=== PATIENT | female | born 2000 | race Caucasian/White ===

== ENCOUNTER → 2018-08-07 | Outpatient (CLI) | payer OTHER ==
[2018-08-07 15:49] LABS: BASOPHILS % (AUTO) 1 % (0-10); EOSINOPHILS # (AUTO) 0.1 10^3/uL (0.0-0.3); EOSINOPHILS % (AUTO) 1 % (0-10); HEMATOCRIT 42 % (35-52); HEMOGLOBIN 14.2 G/DL (11.5-16.0); LYMPHOCYTES # (AUTO) 2.3 X 10^3 (1.0-4.0); LYMPHOCYTES % (AUTO) 31 % (12-44); MEAN CORPUSCULAR HEMOGLOBIN 30 PG (25-34); MEAN CORPUSCULAR HGB CONC 34 G/DL (32-36); MEAN CORPUSCULAR VOLUME 87 FL (80-99); MEAN PLATELET VOLUME 9.7 FL (7.4-10.4); MONOCYTES # (AUTO) 0.4 X 10^3 (0.0-1.0); MONOCYTES % (AUTO) 5 % (0-12); NEUTROPHILS # (AUTO) 4.9 X 10^3 (1.8-7.8); NEUTROPHILS % (AUTO) 63 % (42-75); PLATELET COUNT 306 10^3/uL (130-400); RED CELL DISTRIBUTION WIDTH 12.2 % (10.0-14.5); WHITE BLOOD COUNT 7.7 10^3/uL (4.3-11.0)
[2018-08-07 16:05] LABS: ALANINE AMINOTRANSFERASE 17 U/L (0-55); ALBUMIN 4.8 GM/DL (3.2-4.5); ALKALINE PHOSPHATASE 45 U/L (40-136); BUN/CREATININE RATIO 9; CALCIUM 10.7 MG/DL (8.5-10.1); CARBON DIOXIDE 22 MMOL/L (21-32); CHLORIDE 104 MMOL/L (98-107); CREATININE SERUM 0.76 MG/DL (0.60-1.30); GFR ESTIMATED > 60; GLUCOSE 92 MG/DL (70-105); POTASSIUM 3.6 MMOL/L (3.6-5.0); SODIUM 139 MMOL/L (135-145); TOTAL PROTEIN 8.4 GM/DL (6.4-8.2)
== END ==
LOC: CARD 15:18
PROVIDERS: ATTEND Nurse Practitioner Family
DX: R00.0 Tachycardia, unspecified (principal)
CPT/HCPCS: 36415; 80053; 84443; 85025; 85379

== ENCOUNTER → 2019-10-13 | Outpatient (CLI) | payer MEDICAID ==
--- NOTE | 2019-10-13 12:37 | Diagnostic Imaging Report ---
INDICATION: survey. TECHNIQUE: Multiple real-time grayscale images were obtained over the gravid uterus. COMPARISON: None. FINDINGS: There is a single live fetus in a cephalic presentation. heart rate was recorded at 152 BPM. Placenta is posterior. No previa is detected. Amniotic fluid volume appears normal. survey demonstrates kidneys, bladder, and stomach to be unremarkable. brain is unremarkable. There is a four-chamber heart. There is a three-vessel cord with normal insertion. spine is unremarkable. profile as well as nose and lips are suboptimal in evaluation due to position. Biometrical measurements are as follows: Biparietal 4.39 cm, age 19 weeks 2 days. Head circumference 16.78 cm, age 19 weeks 4 days. Abdominal circumference 14.06 cm, age 19 weeks 7 days. Femur length 3.16 cm, age 19 weeks 6 days. Sonographic estimate age: 19 weeks 4 days. Sonographic estimated date of delivery: 03/04/2020. Estimated Weight: 301 gm (+/- 44 gm). LMP percentile: 31%. heart rate: 152 beats per minute. number: 1 of 1. IMPRESSION: Single live IUP of 19 weeks 4 days gestational age. The estimated date of confinement sonographically is 03/04/2020. Dictated by: Dictated on workstation # [id number]
== END ==
LOC: RAD 06:40
PROVIDERS: ATTEND Nurse Practitioner Women's Health
DX: Z34.92 Encounter for supervision of normal pregnancy, unspecified, second trimester (principal); Z3A.19 19 weeks gestation of pregnancy
CPT/HCPCS: 76805

== ENCOUNTER 2020-01-17 16:26 | Outpatient (CLI) | payer MEDICAID ==
[~2020-01-17] VITALS: Ht 162.6 cm; Wt 79.4 kg
--- NOTE | 2020-01-17 16:20 | NUR ---
DARRYN WARNER presented to unit via ambulation from ED,, with c/o elevated BP, edema. DARRYN WARNER weighed, gowned, voided, and to bed. EFHM and TOCO applied, VS taken. DARRYN WARNER oriented to bed controls, call light, TV, heat, and A/C controls.
[2020-01-17 16:40] VITALS: BP 130/93
[2020-01-17 16:45] VITALS: BP 132/82
[2020-01-17 16:50] VITALS: BP 131/87
[2020-01-17 17:00] VITALS: BP 131/92
--- NOTE | 2020-01-17 17:01 | NUR ---
Dr. Farfan called and notified of pt arrival to unit. Pt is G1 due 03/02 (33.4weeks) c/o feeling "off" and having a BP of 142/102 at home, with increased swelling. notified of complaints, VS since admission, FHR status, ctx pattern, SVE, urine dipstick, and other assessment findings. Orders for CBC, CMP, uric acid, urine protein/creatine rec'd.
[2020-01-17 17:30] VITALS: BP 134/96
[2020-01-17 17:43] LABS: BASOPHILS % (AUTO) 0 % (0-10); EOSINOPHILS # (AUTO) 0.1 10^3/uL (0.0-0.3); EOSINOPHILS % (AUTO) 1 % (0-10); HEMATOCRIT 33 % (35-52); HEMOGLOBIN 10.7 g/dL (11.5-16.0); LYMPHOCYTES # (AUTO) 1.9 10^3/uL (1.0-4.0); LYMPHOCYTES % (AUTO) 16 % (12-44); MEAN CORPUSCULAR HEMOGLOBIN 28 pg (25-34); MEAN CORPUSCULAR HGB CONC 32 g/dL (32-36); MEAN CORPUSCULAR VOLUME 87 fL (80-99); MONOCYTES # (AUTO) 0.6 10^3/uL (0.0-1.0); MONOCYTES % (AUTO) 5 % (0-12); NEUTROPHILS % (AUTO) 78 % (42-75); PLATELET COUNT 211 10^3/uL (130-400); WHITE BLOOD COUNT 11.6 10^3/uL (4.3-11.0)
[2020-01-17 17:56] LABS: ALBUMIN 3.5 GM/DL (3.2-4.5); CHLORIDE 105 MMOL/L (98-107); POTASSIUM 3.8 MMOL/L (3.6-5.0); SODIUM 139 MMOL/L (135-145)
[2020-01-17 17:57] LABS: CALCIUM 9.2 MG/DL (8.5-10.1)
[2020-01-17 17:58] LABS: GLUCOSE 82 MG/DL (70-105); TOTAL PROTEIN 6.6 GM/DL (6.4-8.2)
[2020-01-17 17:59] LABS: CARBON DIOXIDE 21 MMOL/L (21-32)
[2020-01-17 18:00] LABS: BILIRUBIN,TOTAL 0.5 MG/DL (0.1-1.0)
[2020-01-17 18:02] LABS: ALKALINE PHOSPHATASE 96 U/L (40-136); CREATININE SERUM 0.64 MG/DL (0.60-1.30); GFR ESTIMATED > 60
[2020-01-17 18:03] LABS: BUN/CREATININE RATIO 11
[2020-01-17 18:05] LABS: ALANINE AMINOTRANSFERASE 11 U/L (0-55); URIC ACID 5.7 MG/DL (2.6-7.2)
--- NOTE | 2020-01-17 18:11 | NUR ---
Lab results reported to Dr. Farfan. Orders for discharge received.
--- NOTE | 2020-01-17 18:24 | NUR ---
Discharge instructions explained to pt with copy provided to pt. Pt verbalizes understanding of instructions, signs to verify. No questions or concerns voiced at this time. Pt ambulates off unit to private vehicle accompanied by S.O. No s/s of distress noted.
--- NOTE | 2020-01-18 08:29 | Physician Query-Final Dx ---
TONEY MAR 01/18/20 0829: Clinic Account Progress/Dx Physician Query: Please give diagnosis Please include # weeks gestation Date of Service Jan 17, 2020 at 16:26 VAL HARRINGTON DO 01/18/20 1351: Clinic Account Progress/Dx DIAGNOSIS: Diagnosis 33 week IUP Head ache Swelling lower extremities TONEY MAR Jan 18, 2020 08:29 VAL HARRINGTON DO Jan 18, 2020 13:51
== END 2020-01-17 18:24 ==
LOC: WSo 16:26 → LDRP 16:26 → WSo 18:24
PROVIDERS: ATTEND Obstetrics & Gynecology
DX: O26.893 Other specified pregnancy related conditions, third trimester (principal); Z3A.33 33 weeks gestation of pregnancy
CPT/HCPCS: 80053; 82570; 84156; 84550; 85025; G0463; 36415; 99214

== ENCOUNTER → 2020-02-08 | Outpatient (CLI) | payer MEDICAID | LOC: LABNPT 16:59 | PROVIDERS: ATTEND Obstetrics & Gynecology | DX: O13.3 Gestational [pregnancy-induced] hypertension without significant proteinuria, third trimester (principal) | CPT/HCPCS: 82570; 84156 ==

== ENCOUNTER 2020-02-09 18:55 | Inpatient (IN) | payer MEDICAID ==
[~2020-02-09] VITALS: Ht 160 cm; Wt 83.9 kg
--- NOTE | 2020-02-09 19:01 | NUR ---
DARRYN WARNER presented to unit via ambulatory from ED, accompanied by , with c/o INDUCTION 36 09/18. DARRYN WARNER weighed, gowned, voided, and to bed. EFHM and TOCO applied, VS taken. DARRYN WARNER oriented to bed controls, call light, TV, heat, and A/C controls.
[2020-02-09 19:15] VITALS: BP 154/94
[2020-02-09] MEDS ORDERED: D5 LR IV SOLUTION 1,000 ML IV ONE (19:22)
[2020-02-09] MEDS ORDERED: NS (IVPB) 250 ML ONE (19:22)
[2020-02-09] MEDS ORDERED: TERBUTALINE INJ 1 MG/ML (BRETHINE) AMP SC PRN (19:30)
[2020-02-09] MEDS ORDERED: MISOPROSTOL 100 MCG (CYTOTEC) TAB PO NR (19:30)
[2020-02-09] MEDS ORDERED: NS (IVPB) 250 ML IV ONE (19:30)
[2020-02-09] MEDS: D5 LR IV SOLUTION 1,000 ML IV SCH (19:51)
[2020-02-09 20:06] VITALS: BP 154/94
[2020-02-09 20:13] LABS: BASOPHILS % (AUTO) 0 % (0-10); EOSINOPHILS % (AUTO) 0 % (0-10); HEMATOCRIT 32 % (35-52); HEMOGLOBIN 10.1 g/dL (11.5-16.0); LYMPHOCYTES # (AUTO) 1.9 10^3/uL (1.0-4.0); LYMPHOCYTES % (AUTO) 17 % (12-44); MEAN CORPUSCULAR HEMOGLOBIN 29 pg (25-34); MEAN CORPUSCULAR HGB CONC 32 g/dL (32-36); MEAN CORPUSCULAR VOLUME 89 fL (80-99); MEAN PLATELET VOLUME 11.1 fL (9.0-12.2); MONOCYTES # (AUTO) 0.6 10^3/uL (0.0-1.0); MONOCYTES % (AUTO) 6 % (0-12); NEUTROPHILS # (AUTO) 8.4 10^3/uL (1.8-7.8); NEUTROPHILS % (AUTO) 76 % (42-75); PLATELET COUNT 213 10^3/uL (130-400)
[2020-02-09 21:15] VITALS: BP 136/94
[2020-02-09 22:15] VITALS: BP 136/89
[2020-02-09 22:45] VITALS: BP 130/85
[2020-02-09] MEDS ORDERED: MISOPROSTOL 100 MCG (CYTOTEC) TAB PO SCH (23:30)
[2020-02-09 23:45] VITALS: BP 123/81
[2020-02-10] VITALS (71 sets, daily range): BP systolic 103–181; BP diastolic 58–107
[2020-02-10] MEDS ORDERED: HYDROmorphone 2 MG/ML VIAL (DILAUDID) ONE (01:51)
[2020-02-10] MEDS ORDERED: HYDROmorphone 2 MG/ML VIAL (DILAUDID) IV ONE (02:00)
[2020-02-10] MEDS: D5 LR IV SOLUTION 1,000 ML IV SCH ×2 (03:21→11:25)
[2020-02-10] MEDS ORDERED: OXYTOCIN PRE-MIX DRIP 500 ML IV ONE (08:21)
[2020-02-10] MEDS ORDERED: OXYTOCIN PRE-MIX DRIP 500 ML IV SCH ×2 (08:24→18:40)
[2020-02-10] MEDS ORDERED: LACTATED RINGERS 1,000 ML IV ONE (08:38)
[2020-02-10] MEDS ORDERED: fentaNYL 2 mcg/ml BUPIVA 0.125 100 ML ONE (08:39)
--- NOTE | 2020-02-10 08:41 | History & Physical-OB ---
OB - Chief Complaint & HPI Date/Time Date of Admission: Date of Admission: Feb 09, 2020 at 18:55 Date seen by a Provider: Feb 10, 2020 Time Seen by a Provider: 07:45 Chief Complaint/History OB-Reason for Admission/Chief: Induction of Labor Hx : 1 Hx Para: 0 Expected Date of Delivery: Mar 02, 2020 Gestational Age in Weeks: 37 Gestational Age in Days: 0 Indication for induction: other Other reason for admission: Preeclampsia Admission Nurse Assessment Rev: Yes History of Labs AB pos Antibody neg RI RPR NR HBsAg NR HIV NR GC neg GBS neg Allergies and Home Medications Allergies Coded Allergies: No Known Drug Allergies (Unverified , 01/17/20) Home Medications No Active Prescriptions or Reported Meds Patient Home Medication List Home Medication List Reviewed: Yes OB - History Hx of Present Care: Yes Ultrasounds: Normal mid trimester US Obstetrical Complications: Pre-eclampsia Medical Complications: None Delivery History Adverse Rxn to Tranfusion: No Patient Past Medical History n/a Social History/Family History Recent Infectious Disease Expo: No Alcohol Use: Denies Use Recreational Drug Use: No 2nd Hand Smoke Exposure: No Immunizations Date of Influenza Vaccine: Jan 13, 2020 OB - Admission Exam Physical Exam Vitals: Vital Signs 02/09/20 02/10/20 20:06 06:30 Temp 36.5 Pulse 81 Resp 18 B/P (MAP) 122/74 (90) Pulse Ox 98 O2 Delivery Room Air HEENT: NCAT Heart: Rhythm Normal Lungs: Clear Abdomen: Gravid Extremities: Normal Reflexes: Normal Cervical Dilatation: 1cm Effacement: 75% Station: -1 Membranes: Intact Heart Rate: 130's Accelerations: Accelerations Present Decelerations: No Decelerations Short Term Variability: Present [facility] Variability: Average (6-25) Contractions on Admission: 6-10 Minutes Apart Intensity: Mild Labs Laboratory Tests Test 02/09/20 20:00 Range/Units White Blood Count 11.0 4.3-11.0 10^3/uL Red Blood Count 3.55 L 3.80-5.11 10^6/uL Hemoglobin 10.1 L 11.5-16.0 g/dL Hematocrit 32 L 35-52 % Mean Corpuscular Volume 89 80-99 fL Mean Corpuscular Hemoglobin 29 25-34 pg Mean Corpuscular Hemoglobin Concent 32 32-36 g/dL Red Cell Distribution Width 15.0 H 10.0-14.5 % Platelet Count 213 130-400 10^3/uL Mean Platelet Volume 11.1 9.0-12.2 fL Immature Granulocyte % (Auto) 0 % Neutrophils (%) (Auto) 76 H 42-75 % Lymphocytes (%) (Auto) 17 12-44 % Monocytes (%) (Auto) 6 0-12 % Eosinophils (%) (Auto) 0 0-10 % Basophils (%) (Auto) 0 0-10 % Neutrophils # (Auto) 8.4 H 1.8-7.8 10^3/uL Lymphocytes # (Auto) 1.9 1.0-4.0 10^3/uL Monocytes # (Auto) 0.6 0.0-1.0 10^3/uL Eosinophils # (Auto) 0.0 0.0-0.3 10^3/uL Basophils # (Auto) 0.0 0.0-0.1 10^3/uL Immature Granulocyte # (Auto) 0.0 0.0-0.1 10^3/uL OB - Assessment/Plan/Diagnosis Assessment Assessment: induction of labor Admission Dx 19 yo @ 37 Preeclampsia GBS neg Admission Status: Inpatient Order (span 2 midnights) Reason for Inpatient Admission: Induction of labor at term Plan Plan: Induction Induction Method: per Misoprostol Protocol VAL HARRINGTON DO Feb 10, 2020 08:41
[2020-02-10] MEDS ORDERED: LACTATED RINGERS 1,000 ML IV SCH (10:10)
[2020-02-10] MEDS ORDERED: ONDANSETRON 4 MG/2 ML (SDV) Z0FRAN IV PRN (10:15)
[2020-02-10] MEDS ORDERED: METOCLOPRAMIDE INJ 10 MG/2 ML (REGLAN) IV PRN (10:15)
[2020-02-10] MEDS ORDERED: NALOXONE 0.4 MG/ML 1 ML (NARCAN) VIAL IV PRN ×2 (10:15)
[2020-02-10] MEDS ORDERED: diphenhydrAMINE 50 MG/ML INJ (BENADRYL) IV PRN (10:15)
[2020-02-10] MEDS: EPIDURAL (fentaNYL 2 MCG/ML BUPIVA 0.125%)100 ML BAG EPI SCH ×2 (10:33→15:44)
[2020-02-10] MEDS ORDERED: BUPIVACAINE 0.25% 30 ML (SENSORCAINE) VIAL ONE (13:27)
[2020-02-10] MEDS ORDERED: LIDOCAINE PF 2% 5 ML (XYLOCAINE) VIAL ONE (15:46)
[2020-02-10] MEDS ORDERED: fentaNYL INJECTION 100 MCG/2 ML AMP ONE (15:46)
[2020-02-10] MEDS ORDERED: LIDOCAINE/EPI 2% 1:200,00 (XYLOCAINE) 10 ML VIAL ONE (17:43)
[2020-02-10] MEDS ORDERED: HYDROcodone/APAP 5 MG/325 MG (LORTAB) TAB PO PRN (18:45)
[2020-02-10] MEDS ORDERED: DIBUCAINE (NUPERCAINAL) 1% OINT 30 GM TOP PRN (18:45)
[2020-02-10] MEDS ORDERED: TETANUS,DIPTH,PERTUSS P/F (BOOSTRIX) 0.5 ML VIAL IM ONE (18:45)
[2020-02-10] MEDS ORDERED: MEASLES,MUMPS,RUBELLA 1 EA INJ SQ ONE (18:45)
[2020-02-10] MEDS ORDERED: WITCH HAZEL(TUCKS) 40 EA JAR TOP PRN (18:45)
--- NOTE | 2020-02-10 18:45 | OB Labor & Delivery Record ---
L&D History Date of Service Date of Service: Feb 10, 2020 History Expected Date of Delivery: Mar 02, 2020 Gestational Age in Weeks: 37 Hx : 1 Hx Para: 0 Complications Events: Pre-Eclampsia, Routine care Operative Indications (Cesarea: N/A-Vaginal Delivery Intrapartal Events: None L&D Stage1 Stage One Onset of Labor - Date: Feb 10, 2020 Monitors and Tracing Monitor Mode: External Heart Rate: 140 Monitor Accelerations: Uniform Monitor Decelerations: None Station: -2 Alf Variability: Average (6-10) Short Term Variability: Present Presentation: Vertex Vital Signs VS - Last 72 Hours, by Label 02/09/20 02/09/20 02/09/20 02/09/20 19:15 20:06 21:15 22:15 Temp 36.5 36.5 Pulse 106 106 93 86 Resp 18 18 18 18 B/P (MAP) 154/94 (114) 136/94 (108) 136/89 (105) Pulse Ox 98 98 O2 Delivery Room Air Room Air Room Air 02/09/20 02/09/20 02/10/20 02/10/20 22:45 23:45 00:15 00:45 Temp 36.5 Pulse 83 81 82 81 Resp 18 18 18 18 B/P (MAP) 130/85 (100) 123/81 (95) 135/88 (104) 108/61 (77) O2 Delivery Room Air Room Air Room Air Room Air 02/10/20 02/10/20 02/10/20 02/10/20 01:15 01:45 02:15 02:45 Pulse 87 72 75 85 Resp 18 18 18 18 B/P (MAP) 103/58 (73) 128/90 (103) 120/76 (91) 118/75 (89) O2 Delivery Room Air Room Air Room Air Room Air 02/10/20 02/10/20 02/10/20 02/10/20 03:15 04:30 05:30 06:30 Temp 36.5 Pulse 96 83 81 81 Resp 18 18 18 18 B/P (MAP) 115/74 (88) 140/82 (101) 111/64 (80) 122/74 (90) O2 Delivery Room Air Room Air Room Air Room Air 02/10/20 02/10/20 02/10/20 02/10/20 08:20 08:35 08:50 09:20 Temp 36.2 Pulse 83 93 81 75 Resp 18 18 18 18 B/P (MAP) 129/86 (100) 135/94 (108) 138/76 (96) 149/95 (113) O2 Delivery Room Air Room Air Room Air Room Air 02/10/20 02/10/20 02/10/20 02/10/20 09:35 09:50 10:00 10:04 Pulse 76 95 85 96 Resp 20 20 20 20 B/P (MAP) 145/97 (113) 162/98 (119) 146/99 (115) 147/102 (117) Pulse Ox 96 99 98 O2 Delivery Room Air Room Air Room Air Room Air 02/10/20 02/10/20 02/10/20 02/10/20 10:08 10:12 10:16 10:20 Temp 36.4 Pulse 83 71 84 81 Resp 20 20 20 20 B/P (MAP) 139/103 (115) 133/91 (105) 131/85 (100) 125/73 (90) Pulse Ox 96 98 97 97 O2 Delivery Room Air Room Air Room Air Room Air 02/10/20 02/10/20 02/10/20 02/10/20 10:24 10:30 10:35 10:40 Temp 36.0 Pulse 93 83 76 79 Resp 18 18 18 18 B/P (MAP) 133/84 (100) 126/80 (95) 128/60 (82) 120/72 (88) Pulse Ox 99 99 98 98 O2 Delivery Room Air Room Air Room Air Room Air 02/10/20 02/10/20 02/10/20 02/10/20 10:45 10:50 10:55 11:00 Pulse 80 77 71 75 Resp 18 18 18 18 B/P (MAP) 115/74 (88) 117/76 (90) 115/73 (87) 114/72 (86) Pulse Ox 98 97 97 97 O2 Delivery Room Air Room Air Room Air Room Air 02/10/20 02/10/20 02/10/20 02/10/20 11:05 11:10 11:15 11:25 Pulse 75 92 92 76 Resp 18 18 18 18 B/P (MAP) 114/73 (87) 112/68 (83) 112/68 (83) 113/69 (84) Pulse Ox 98 100 100 100 O2 Delivery Room Air Room Air Room Air Room Air 02/10/20 02/10/20 02/10/20 02/10/20 11:45 12:00 12:15 12:30 Temp 36.2 Pulse 77 77 86 86 Resp 18 18 18 18 B/P (MAP) 113/68 (83) 112/68 (83) 114/73 (87) 140/73 (95) Pulse Ox 100 99 100 100 O2 Delivery Room Air Room Air Room Air Room Air 02/10/20 02/10/20 02/10/20 02/10/20 12:45 13:00 13:15 13:30 Pulse 82 86 104 104 Resp 18 18 18 18 B/P (MAP) 135/92 (106) 135/95 (108) 140/93 (109) 134/92 (106) Pulse Ox 100 100 100 100 O2 Delivery Room Air Room Air Room Air Room Air 02/10/20 02/10/20 02/10/20 02/10/20 13:45 14:00 14:15 14:30 Pulse 99 90 96 84 Resp 18 18 18 18 B/P (MAP) 140/75 (96) 136/91 (106) 136/87 (103) 127/76 (93) Pulse Ox 100 99 100 99 O2 Delivery Room Air Room Air Room Air Room Air 02/10/20 02/10/20 02/10/20 02/10/20 14:45 15:00 15:15 15:30 Pulse 82 93 93 106 Resp 18 18 18 18 B/P (MAP) 127/80 (96) 137/83 (101) 154/105 (121) 143/101 (115) Pulse Ox 99 100 100 100 O2 Delivery Room Air Room Air Room Air Room Air 02/10/20 02/10/20 02/10/20 02/10/20 15:40 15:55 16:10 16:25 Temp 36.2 Pulse 107 100 90 79 Resp 18 18 18 18 B/P (MAP) 137/107 (117) 145/82 (103) 140/77 (98) 128/79 (95) Pulse Ox 100 99 100 99 O2 Delivery Room Air Room Air Room Air Room Air 02/10/20 02/10/20 16:40 16:55 Pulse 90 92 Resp 18 18 B/P (MAP) 132/83 (99) 140/90 (107) Pulse Ox 100 100 O2 Delivery Room Air Room Air Rupture of Membranes Spontaneous Ruture of Membrane: Yes Amniotic Membrane Rupture Time: 0742 Amniotic Membrane Fluid Desc.: Clear Vaginal Bleeding Description: Normal Show Induction/Anesthesia Epidural Cath Placement - Time: 1003 Progress/Notes Patient admitted last night for IOL, cytotec PO given overnight. AROM and Pitocin augmentation dosed today to max dose 8 mu. She progressed with epidural to complete and 0 station L&D Stage2 Stage Two Stage II Date: Feb 10, 2020 Monitors and Tracing Monitor Mode: External Heart Rate: 140 [employer] Variability: Average (6-10) Short Term Variability: Present Position: Right Occiput Anterior Presentation: Vertex Cord Descript/Complications Cord Vessel Description: 3 Vessels Delivery Type Infant Delivery Method: Spontaneous Vaginal Anterior Shoulder: Left Episiotomy/Perineal Laceration Laceraction(s)/Extensions: Yes Episiotomy Description: Right Mediolateral Degree (describe repair) RML repaired using 3-0 rapide and 2-0 vicryl suture Condition of Delivery 1 minute Comment: 7 5 minute Comment: 9 Notes Live female infant weight 6lbs 15oz Condition of Condition of Infant: Living Exam: No Observed Abnormalities Resuscitation Resuscitation: N/A - Spontaneous Resp L&D Stage3 Stage Three Stage III Date: Feb 10, 2020 Pictocin Pitocin Administration mu/min: 8 Pitocin ml/hr: 8 Pitocin Administration Comment: 30 mu wide open at delivery of placenta Placenta Delivery Placenta Delivery: Spontaneous Delivery Summary Summary Estimated blood loss (mL): 350 Attending at delivery: Val Harrington DO Condition of Delivery Examined: Cervix Examined, Uterus Explored Post Hemorrhage: No Condition of Mother stable Condition of Infant (s) stable VAL HARRINGTON DO Feb 10, 2020 18:45
[2020-02-10] MEDS: BENZOCAINE/MENTHOL (DERMOPLAST) 60 ML CAN TP PRN (20:00)
[2020-02-10] MEDS: IBUPROFEN 600 MG (MOTRIN) TAB PO SCH (20:00)
[2020-02-10] MEDS ORDERED: CATHETER FLUSH 10 ML SYR IV SCH (22:00)
[2020-02-11 01:09] VITALS: BP 131/88
[2020-02-11] MEDS: DOCUSATE SODIUM 100 MG (COLACE) CAP PO SCH ×3 (01:09→20:40)
[2020-02-11] MEDS: IBUPROFEN 600 MG (MOTRIN) TAB PO SCH ×4 (01:09→18:46)
[2020-02-11 04:55] VITALS: BP 137/81
[2020-02-11 05:18] LABS: BASOPHILS % (AUTO) 0 % (0-10); EOSINOPHILS % (AUTO) 0 % (0-10); HEMATOCRIT 25 % (35-52); LYMPHOCYTES # (AUTO) 1.7 10^3/uL (1.0-4.0); LYMPHOCYTES % (AUTO) 13 % (12-44); MEAN CORPUSCULAR HEMOGLOBIN 29 pg (25-34); MEAN CORPUSCULAR HGB CONC 32 g/dL (32-36); MEAN CORPUSCULAR VOLUME 89 fL (80-99); MEAN PLATELET VOLUME 11.5 fL (9.0-12.2); MONOCYTES # (AUTO) 0.6 10^3/uL (0.0-1.0); MONOCYTES % (AUTO) 5 % (0-12); NEUTROPHILS # (AUTO) 10.6 10^3/uL (1.8-7.8); NEUTROPHILS % (AUTO) 81 % (42-75); PLATELET COUNT 168 10^3/uL (130-400); WHITE BLOOD COUNT 13.1 10^3/uL (4.3-11.0)
--- NOTE | 2020-02-11 06:03 | Postpartum Progress Note ---
RADHA NG MD 02/11/20 0603: Note Note Day # 1 Subjective: Patient is without complaints. Ambulating, voiding. Tolerating a regular diet without nausea or vomiting. Normal lochia. Pain is well controlled with oral pain medications. Breast feeding is generally going well. Objective: Physical Exam: General - Alert and oriented, no apparent distress Abdomen - Soft, appropriately tender to palpation, non-distended, fundus firm at umbilicus Extremities - no edema, negative Prem's bilaterally Neuro - Grossly intact Assessment: 19 y/o G1 now P1 at 37w0d w/ preg c/b PreEclampsia s/p who is post- day # 1; delivery c/b RME s/p repair - Recovering well, hemodynamically stable - BP wnl - Hgb 10.1 -> 8.0 Plan: Routine care. Encourage breast feeding. Encourage ambulation. Ferrous sulfate supplementation. Plan for discharge PPD#2-3 pending BP and baby's discharge d/w Dr. Adolph Ng MD [facility] Resident Physician, PGY-2 Vitals - Labs Vital Signs - I&O Vital Signs Date Time Temp Pulse Resp B/P (MAP) Pulse Ox O2 Delivery O2 Flow Rate FiO2 02/11/20 04:55 36.1 88 18 137/81 (99) 98 Room Air 02/11/20 01:09 36.5 99 18 131/88 (102) Room Air 02/10/20 21:45 36.3 91 20 121/79 (93) Room Air 02/10/20 21:00 36.4 94 20 115/64 (81) Room Air 02/10/20 20:30 97 18 121/68 (85) Room Air 02/10/20 19:59 36.5 112 20 129/85 (100) Room Air 02/10/20 19:49 99 18 122/75 (91) Room Air 02/10/20 19:34 36.8 102 20 127/79 (95) Room Air 02/10/20 19:19 110 18 115/77 (90) Room Air 02/10/20 19:04 113 18 127/74 (91) Room Air 02/10/20 18:45 36.9 125 20 134/75 (94) Room Air 02/10/20 18:30 37.0 133 20 149/91 (110) Room Air 02/10/20 18:15 37.1 155 20 167/89 (115) Room Air 02/10/20 18:00 37.0 106 20 181/88 (119) Room Air 02/10/20 17:45 106 18 155/91 (112) 100 Room Air 02/10/20 17:30 37.1 103 18 126/80 (95) 100 Room Air 02/10/20 17:15 110 18 130/79 (96) 100 Room Air 02/10/20 16:55 92 18 140/90 (107) 100 Room Air 02/10/20 16:40 90 18 132/83 (99) 100 Room Air 02/10/20 16:25 79 18 128/79 (95) 99 Room Air 02/10/20 16:10 90 18 140/77 (98) 100 Room Air 02/10/20 15:55 36.2 100 18 145/82 (103) 99 Room Air 02/10/20 15:40 107 18 137/107 (117) 100 Room Air 02/10/20 15:30 106 18 143/101 (115) 100 Room Air 02/10/20 15:15 93 18 154/105 (121) 100 Room Air 02/10/20 15:00 93 18 137/83 (101) 100 Room Air 02/10/20 14:45 82 18 127/80 (96) 99 Room Air 02/10/20 14:30 84 18 127/76 (93) 99 Room Air 02/10/20 14:15 96 18 136/87 (103) 100 Room Air 02/10/20 14:00 90 18 136/91 (106) 99 Room Air 02/10/20 13:45 99 18 140/75 (96) 100 Room Air 02/10/20 13:30 104 18 134/92 (106) 100 Room Air 02/10/20 13:15 104 18 140/93 (109) 100 Room Air 02/10/20 13:00 86 18 135/95 (108) 100 Room Air 02/10/20 12:45 82 18 135/92 (106) 100 Room Air 02/10/20 12:30 36.2 86 18 140/73 (95) 100 Room Air 02/10/20 12:15 86 18 114/73 (87) 100 Room Air 02/10/20 12:00 77 18 112/68 (83) 99 Room Air 02/10/20 11:45 77 18 113/68 (83) 100 Room Air 02/10/20 11:25 76 18 113/69 (84) 100 Room Air 02/10/20 11:15 92 18 112/68 (83) 100 Room Air 02/10/20 11:10 92 18 112/68 (83) 100 Room Air 02/10/20 11:05 75 18 114/73 (87) 98 Room Air 02/10/20 11:00 75 18 114/72 (86) 97 Room Air 02/10/20 10:55 71 18 115/73 (87) 97 Room Air 02/10/20 10:50 77 18 117/76 (90) 97 Room Air 02/10/20 10:45 80 18 115/74 (88) 98 Room Air 02/10/20 10:40 36.0 79 18 120/72 (88) 98 Room Air 02/10/20 10:35 76 18 128/60 (82) 98 Room Air 02/10/20 10:30 83 18 126/80 (95) 99 Room Air 02/10/20 10:24 93 18 133/84 (100) 99 Room Air 02/10/20 10:20 81 20 125/73 (90) 97 Room Air 02/10/20 10:16 36.4 84 20 131/85 (100) 97 Room Air 02/10/20 10:12 71 20 133/91 (105) 98 Room Air 02/10/20 10:08 83 20 139/103 (115) 96 Room Air 02/10/20 10:04 96 20 147/102 (117) 98 Room Air 02/10/20 10:00 85 20 146/99 (115) 99 Room Air 02/10/20 09:50 95 20 162/98 (119) 96 Room Air 02/10/20 09:35 76 20 145/97 (113) Room Air 02/10/20 09:20 75 18 149/95 (113) Room Air 02/10/20 08:50 81 18 138/76 (96) Room Air 02/10/20 08:35 93 18 135/94 (108) Room Air 02/10/20 08:20 36.2 83 18 129/86 (100) Room Air 02/10/20 06:30 36.5 81 18 122/74 (90) Room Air I & O 02/11/20 07:00 Intake Total 1950 ml Balance 1950 ml Labs Laboratory Tests 02/11/20 04:47: White Blood Count 13.1H, Red Blood Count 2.78L, Hemoglobin 8.0#L, Hematocrit 25L , Mean Corpuscular Volume 89, Mean Corpuscular Hemoglobin 29, Mean Corpuscular Hemoglobin Concent 32, Red Cell Distribution Width 15.0H, Platelet Count 168, Mean Platelet Volume 11.5, Immature Granulocyte % (Auto) 1, Neutrophils (%) (Auto) 81H, Lymphocytes (%) (Auto) 13, Monocytes (%) (Auto) 5, Eosinophils (%) (Auto) 0, Basophils (%) (Auto) 0, Neutrophils # (Auto) 10.6H, Lymphocytes # (Auto) 1.7, Monocytes # (Auto) 0.6, Eosinophils # (Auto) 0.0, Basophils # (Auto) 0.0, Immature Granulocyte # (Auto) 0.1 MINGO HARRINTGON DO 02/11/20 0720: Note Note Verification and Attestation of Resident physician E/M Service A resident physician performed and documented this service in my presence. I reviewed and verified all information documented by the resident physician and made modifications to such information, when appropriate. I personally performed the physical exam and medical decision making. Mingo Harrington, Feb 11, 2020,07:20 RADHA NG MD Feb 11, 2020 06:03 MINGO HARRINGTON DO Feb 11, 2020 07:20
--- NOTE | 2020-02-11 06:50 | Anesthesia-Regional Post-Op ---
Regional Patient Condition Mental Status: Alert, Oriented x3 Circulation: Same as Pre-Op Headache: Absent Sensation: Full Recovery Motor Block: Absent Post Op Complications Complications None Follow Up Care/Instructions Patient Instructions None needed. Anesthesia/Patient Condition Patient is doing well, no complaints, stable vital signs, no apparent adverse anesthesia problems. No complications reported per nursing. [place] [facility] [place]: LISBET Ulloa CRNA Feb 11, 2020 06:50
[2020-02-11] MEDS: FERROUS SULF 325 MG (IRON) TAB PO SCH (08:45)
[2020-02-11 08:46] VITALS: BP 118/81
[2020-02-11] MEDS ORDERED: DCS100C PO (09:06)
[2020-02-11] MEDS ORDERED: ACHD5005 PO (09:06)
[2020-02-11] MEDS ORDERED: IBUP-844 PO (09:06)
[2020-02-11] MEDS ORDERED: DIBU30OI TOP (09:06)
[2020-02-11] MEDS ORDERED: BENZ78AE5 TP (09:06)
[2020-02-11] MEDS ORDERED: FERR325T18 PO (09:06)
--- NOTE | 2020-02-11 09:06 | Discharge Inst-Women's Service ---
Discharge Inst-Women's Serv Depart Medication/Instructions New, Converted or Re-Newed RX: RX on Chart Final Diagnosis PPD 2 NVD PreE Problems Reviewed?: Yes Consults/Follow Up Additional Follow Up: Yes Orders/Referrals Dr. Harrington in 6 weeks Activity Activity: Activity as Tolerated Driving Instructions: No Driving for 1 Week NO SMOKING: NO SMOKING Nothing Inside Vagina: No Douching, No Violet, No Tampons Diet Discharge Diet: No Restrictions Symptoms to Report to : Bleeding Excessive, Pain Increased, Fever Over 101 Degrees F, Vaginal Bleeding Increase, Questions/Concerns For Any Problems or Questions: Contact Your Physician VAL HARRINGTON DO Feb 11, 2020 09:06
--- NOTE | 2020-02-11 15:00 | NUR ---
This RN assuming care of pt.
[2020-02-11 15:15] VITALS: BP 138/86
[2020-02-11 20:41] VITALS: BP 131/88
[2020-02-12] MEDS: IBUPROFEN 600 MG (MOTRIN) TAB PO SCH ×3 (01:43→15:07)
[2020-02-12 01:44] VITALS: BP 136/75
[2020-02-12 08:30] VITALS: BP 131/89
--- NOTE | 2020-02-12 08:30 | NUR ---
A.M. ASSESSMENT COMPLETED. VSS. CARING FOR IN ROOM.
[2020-02-12 08:35] VITALS: BP 143/85
[2020-02-12] MEDS: FERROUS SULF 325 MG (IRON) TAB PO SCH (08:48)
[2020-02-12] MEDS: DOCUSATE SODIUM 100 MG (COLACE) CAP PO SCH (08:48)
[2020-02-12] MEDS: BENZOCAINE/MENTHOL (DERMOPLAST) 60 ML CAN TP PRN (09:04)
--- NOTE | 2020-02-12 09:15 | NUR ---
DR. MONTOYA IN TO SEE PARENTS. NEEDING TO STAY R/T BILIRUBIN LEVEL. PT TEARFUL. REASSURANCE GIVEN.
--- NOTE | 2020-02-12 09:44 | Postpartum Progress Note ---
Note Note Day # 2 Subjective: Patient is without complaints. Ambulating, voiding. Tolerating a regular diet without nausea or vomiting. Normal lochia. Pain is well controlled with oral pain medications. Objective: Physical Exam: General - Alert and oriented, no apparent distress Abdomen - Soft, appropriately tender to palpation, non-distended, fundus firm at umbilicus Extremities - no edema, negative Prem's bilaterally Assessment: PPD 2 NVD Acute blood loss anemia PreE- improved now Plan: Routine care. Encourage breast feeding. Encourage ambulation. Ferrous sulfate supplementation. Plan for discharge today Vitals - Labs Vital Signs - I&O Vital Signs Date Time Temp Pulse Resp B/P (MAP) Pulse Ox O2 Delivery O2 Flow Rate FiO2 02/12/20 01:44 36.2 87 18 136/75 (95) 98 Room Air 02/11/20 20:41 36.8 92 18 131/88 (102) 97 Room Air 02/11/20 15:15 36.1 101 16 138/86 (103) 98 Room Air Labs Laboratory Tests 02/11/20 15:16: Glucometer 89 VAL HARRINGTON DO Feb 12, 2020 09:44
--- NOTE | 2020-02-12 10:15 | NUR ---
DR. HARRINGTON HERE TO SEE PT. PLAN TO DISMISS TO ROOMING IN.
[2020-02-12 12:45] VITALS: BP 131/83
--- NOTE | 2020-02-12 13:30 | NUR ---
PT NAPPING AT THIS TIME. S.O. CARING FOR .
[2020-02-12 17:45] VITALS: BP 137/87
--- NOTE | 2020-02-12 17:55 | NUR ---
DISCHARGE INSTRUCTIONS REVIEWED WITH COPY TO PT. STATES UNDERSTANDING OF ALL INSTRUCTIONS AND NEED TO F/U SCHEDULED AND NEEDED.
[2020-02-12 18:00] VITALS: BP 137/87
--- NOTE | 2020-02-12 18:00 | NUR ---
DISMISSED FROM WS IN STABLE CONDITION. 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
== END 2020-02-12 18:00 | disposition home or self-care (01) | DRG 806 ==
LOC: LDRP 18:55
PROVIDERS: ADMIT Obstetrics & Gynecology; ATTEND Obstetrics & Gynecology
PROC: 10E0XZZ Delivery of Products of Conception, External Approach (ICD-10-PCS; principal; 2020-02-10)
PROC: 0KQM0ZZ Repair Perineum Muscle, Open Approach (ICD-10-PCS; 2020-02-10)
PROC: 10907ZC Drainage of Amniotic Fluid, Therapeutic from Products of Conception, Via Natural or Artificial Opening (ICD-10-PCS; 2020-02-10)
DX: O14.94 Unspecified pre-eclampsia, complicating childbirth (principal); D62 Acute posthemorrhagic anemia; Z37.0 Single live birth; Z3A.37 37 weeks gestation of pregnancy; O70.1 Second degree perineal laceration during delivery; O90.81 Anemia of the puerperium
CPT/HCPCS: 36415; 82962; 85025; 86850; 86900; 86901

== ENCOUNTER → 2021-10-10 | Outpatient (CLI) | payer MEDICAID ==
[~2021-10-10] MED LIST: ACHD5005 PO; BENZ78AE5 TP; DIBU30OI TOP; DOCU-239 PO; FERR325T18 PO; IBUP-844 PO
--- NOTE | 2021-10-10 14:48 | Diagnostic Imaging Report ---
INDICATION: Anatomy survey. TECHNIQUE: Multiple real-time grayscale images were obtained over the gravid uterus. COMPARISON: None. FINDINGS: Gestational age 20 weeks, 6 days, with an RIC of 02/21/2022. Number: Single live intrauterine Presentation: Transverse Placenta: Anterior and not low lying Amniotic Fluid: ABEL is within normal limits. No dedicated measurements of the amniotic fluid was taken. Heart Rate: 153 bpm Cerebellum: visualized Lateral ventricles: visualized Cavum septum pellucidum: visualized Nasal Bone: visualized Face: visualized Stomach: visualized Kidneys: visualized Bladder: visualized Three vessel cord: visualized Cord insertion: visualized 4 chamber heart: visualized outflow tracts: visualized Spine, upper: Not well visualized Spine, lower: Not well visualized Upper extremities: visualized Lower extremities: visualized Hands: Visualized, however not all fingers are well seen. Feet: Visualized, however not all toes are well seen. The adnexa have a normal appearance without mass or free fluid. The cervix is closed and measures 6.8 cm in length. Biometrical measurements are as follows: Biparietal 4.93 cm, age 21 weeks 0 days. Head circumference 18.86 cm, age 21 weeks 2 days. Abdominal circumference 15.75 cm, age 21 weeks 0 days. Femur length 3.46 cm, age 21 weeks 0 days. Sonographic estimate age: 21 weeks 1 days. Sonographic estimated date of delivery: 02/19/2022. Estimated Weight: 387 gm (+/- 56 gm). LMP percentile: 48%. heart rate: 153 beats per minute. number: 1 of 1. IMPRESSION: 1. Single live intrauterine gestation in transverse presentation measuring 21 weeks 1 day with an estimated due date of 02/19/2022. These are within range of clinical dates. 2. The spine is not well visualized due to position. The remainder of the anatomy is seen and has a normal appearance. Recommend follow-up as indicated. Dictated by: Dictated on workstation # [id number]
== END ==
LOC: RAD 13:00
PROVIDERS: ATTEND Obstetrics & Gynecology
DX: Z34.02 Encounter for supervision of normal first pregnancy, second trimester (principal)
CPT/HCPCS: 76805

== ENCOUNTER 2021-10-21 22:39 | Outpatient (CLI) | payer MEDICAID ==
[~2021-10-21] VITALS: Ht 162.6 cm; Wt 75.2 kg
[2021-10-21 23:00] VITALS: BP 118/72
[2021-10-21 23:07] LABS: BILIRUBIN,URINE NEGATIVE (NEGATIVE); CLARITY,URINE CLEAR; COLOR,URINE YELLOW; GLUCOSE, URINE (UA) NEGATIVE (NEGATIVE); KETONES,URINE NEGATIVE (NEGATIVE); LEUKOCYTE ESTERASE ,URINE NEGATIVE (NEGATIVE); NITRITE,URINE NEGATIVE (NEGATIVE); PROTEIN,URINE NEGATIVE (NEGATIVE)
[2021-10-21 23:12] LABS: BACTERIA,URINE FEW /HPF; RBC,URINE 0-2 /HPF; SQUAMOUS EPITHELIAL CELL,UR 0-2 /HPF
[2021-10-21] MEDS ORDERED: ASPI-999 PO (23:31)
[2021-10-21] MEDS ORDERED: PREN-37 PO (23:31)
[2021-10-21] MEDS ORDERED: SERT-413 PO (23:31)
[2021-10-21 23:50] VITALS: BP 109/67
== END 2021-10-21 23:41 ==
LOC: LDRP 22:39 → WSo 22:39
PROVIDERS: ATTEND Obstetrics & Gynecology
DX: O62.9 Abnormality of forces of labor, unspecified (principal); Z3A.00 Weeks of gestation of pregnancy not specified
CPT/HCPCS: 81000; G0463; 99212

== ENCOUNTER 2021-10-23 18:12 | Outpatient (CLI) | payer MEDICAID ==
[~2021-10-23] VITALS: Ht 160 cm; Wt 74.4 kg
[~2021-10-23 18:12] MED LIST changes: +ASPI-999 PO; +PREN-37 PO; +SERT-413 PO
[2021-10-23 18:35] VITALS: BP 128/78
[2021-10-23 18:40] VITALS: BP 128/78
[2021-10-23 18:45] VITALS: BP 128/78
[2021-10-23 18:58] VITALS: BP 108/70
[2021-10-23 19:06] LABS: BILIRUBIN,URINE NEGATIVE (NEGATIVE); CLARITY,URINE CLEAR; COLOR,URINE YELLOW; GLUCOSE, URINE (UA) NEGATIVE (NEGATIVE); KETONES,URINE NEGATIVE (NEGATIVE); LEUKOCYTE ESTERASE ,URINE NEGATIVE (NEGATIVE); NITRITE,URINE NEGATIVE (NEGATIVE); PROTEIN,URINE TRACE (NEGATIVE)
[2021-10-23] MEDS ORDERED: CETI10CA PO (19:36)
[2021-10-23] MEDS ORDERED: D5 LR IV SOLUTION 1,000 ML IV ONE (19:44)
[2021-10-23] MEDS ORDERED: D5 LR IV SOLUTION 1,000 ML IV SCH (19:45)
[2021-10-23 19:46] LABS: BACTERIA,URINE LARGE /HPF; RBC,URINE 0-2 /HPF
[2021-10-23] MEDS ORDERED: fluCOnazole (DIFLUCAN) 100 MG TAB PO ONE (21:15)
--- NOTE | 2021-10-25 09:25 | Physician Query-Final Dx ---
Clinic Account Progress/Dx Physician Query: Please give diagnosis Please include # weeks gestation Date of Service Oct 23, 2021 at 18:12 ISABELA,AprOct 25, 2021 09:25
== END 2021-10-23 22:14 ==
LOC: WSo 18:12
PROVIDERS: ATTEND Obstetrics & Gynecology
DX: O12.12 Gestational proteinuria, second trimester (principal); Z3A.22 22 weeks gestation of pregnancy
CPT/HCPCS: 81000; 87088; 87210; 96360; 96361; 99214

== ENCOUNTER → 2021-11-09 | Outpatient (CLI) | payer MEDICAID ==
[~2021-11-09] MED LIST changes: +CETI10CA PO
[2021-11-09 09:22] LABS: URINE CREATININE FOR RATIO 31 MG/DL (30-125); URINE PROTEIN FOR RATIO ONLY < 6 MG/DL (6-12)
== END ==
LOC: LABNPT 08:55
PROVIDERS: ATTEND Obstetrics & Gynecology
DX: Z01.89 Encounter for other specified special examinations (principal)
CPT/HCPCS: 82570; 84156

== ENCOUNTER 2022-01-22 11:29 | Outpatient (CLI) | payer MEDICAID ==
[~2022-01-22] VITALS: Ht 162.6 cm; Wt 80.1 kg
[2022-01-22 12:02] VITALS: BP 126/78
[2022-01-22 12:02] LABS: BILIRUBIN,URINE NEGATIVE (NEGATIVE); CLARITY,URINE CLEAR; COLOR,URINE YELLOW; GLUCOSE, URINE (UA) NEGATIVE (NEGATIVE); KETONES,URINE NEGATIVE (NEGATIVE); LEUKOCYTE ESTERASE ,URINE TRACE (NEGATIVE); NITRITE,URINE NEGATIVE (NEGATIVE); PROTEIN,URINE NEGATIVE (NEGATIVE)
[2022-01-22] MEDS ORDERED: GLBR5T PO (12:06)
[2022-01-22] MEDS ORDERED: GLYB1.253 PO (12:07)
[2022-01-22 12:08] LABS: BACTERIA,URINE FEW /HPF; WBC,URINE RARE /HPF
[2022-01-22 12:27] LABS: BASOPHILS % (AUTO) 0 % (0-10); EOSINOPHILS # (AUTO) 0.1 10^3/uL (0.0-0.3); EOSINOPHILS % (AUTO) 1 % (0-10); HEMATOCRIT 36 % (35-52); HEMOGLOBIN 11.7 g/dL (11.5-16.0); LYMPHOCYTES # (AUTO) 1.4 10^3/uL (1.0-4.0); LYMPHOCYTES % (AUTO) 15 % (12-44); MEAN CORPUSCULAR HEMOGLOBIN 29 pg (25-34); MEAN CORPUSCULAR HGB CONC 33 g/dL (32-36); MEAN CORPUSCULAR VOLUME 90 fL (80-99); MONOCYTES # (AUTO) 0.5 10^3/uL (0.0-1.0); MONOCYTES % (AUTO) 6 % (0-12); NEUTROPHILS # (AUTO) 7.1 10^3/uL (1.8-7.8); NEUTROPHILS % (AUTO) 78 % (42-75); PLATELET COUNT 171 10^3/uL (130-400); WHITE BLOOD COUNT 9.1 10^3/uL (4.3-11.0)
[2022-01-22 12:28] LABS: ALBUMIN 3.2 GM/DL (3.2-4.5); POTASSIUM 3.7 MMOL/L (3.6-5.0)
[2022-01-22 12:30] LABS: TOTAL PROTEIN 6.1 GM/DL (6.4-8.2)
[2022-01-22 12:32] LABS: BILIRUBIN,TOTAL 0.4 MG/DL (0.1-1.0)
[2022-01-22 12:34] LABS: CREATININE SERUM 0.57 MG/DL (0.60-1.30)
[2022-01-22 13:09] LABS: URINE CREATININE FOR RATIO 53 MG/DL (30-125)
[2022-01-22 13:10] LABS: URINE PROTEIN FOR RATIO ONLY < 6 MG/DL (6-12)
--- NOTE | 2022-01-23 07:51 | Physician Query-Final Dx ---
,01/23/22 0751: Clinic Account Progress/Dx Physician Query: Please give diagnosis Please include # weeks gestation Date of Service Jan 22, 2022 at 11:29 DENA WEST MD 01/23/22 1445: Clinic Account Progress/Dx DIAGNOSIS: Diagnosis 35 weeks gestation with air hunger of ,AprJan 23, 2022 07:51 DENA WEST MD Jan 23, 2022 14:45
== END 2022-01-22 13:39 | disposition home or self-care (01) ==
LOC: LDRP 11:29 → WSo 11:29
PROVIDERS: ATTEND Obstetrics & Gynecology
DX: O26.893 Other specified pregnancy related conditions, third trimester (principal); R06.02 Shortness of breath; Z3A.35 35 weeks gestation of pregnancy
CPT/HCPCS: 36415; 80053; 81000; 82570; 84156; 85025

== ENCOUNTER → 2022-01-25 | Outpatient (CLI) | payer MEDICAID ==
[~2022-01-25] MED LIST changes: +GLBR5T PO; +GLYB1.253 PO
--- NOTE | 2022-01-25 14:12 | Diagnostic Imaging Report ---
INDICATION: Gestational diabetes mellitus and , insulin controlled. TECHNIQUE: Multiple real-time grayscale images were obtained over the gravid uterus. COMPARISON: 10/10/2021 FINDINGS: Single intrauterine patency currently in cephalic presentation. Placenta anteriorly without previa. Normal amount of amniotic fluid, index at 12.6 cm. anatomic assessment not performed. Biometrical measurements are as follows: Biparietal 9.40 cm, age 38 weeks 2 days. Head circumference 34.50 cm, age 40 weeks 0 days. Abdominal circumference 35.69 cm, age 39 weeks 5 days. Femur length 7.41 cm, age 38 weeks 0 days. Sonographic estimate age: 39 weeks 0 days. Sonographic estimated date of delivery: 02/01/2022. Estimated Weight: 3688 gm (+/- 539 gm). LMP percentile: >98%. heart rate: 122 beats per minute. number: 1 of 1. Biophysical Profile Scoring: breathin Body movement: 2 tone: 2 Amniotic fluid: 2 Total BPP Score: 8/8 IMPRESSION: 1. Single viable intrauterine , currently in a cephalic presentation. 2. Sonographic estimated age 39 weeks 0 days, with an estimated date of delivery 02/01/2022. This is 18 days advanced compared to initial ultrasound dating. Estimated weight is at the greater than 98th percentile, large for gestational age. 3. Normal biophysical profile score. Dictated by: Dictated on workstation # [id number]
== END ==
LOC: RAD 12:00
PROVIDERS: ATTEND Nurse Practitioner Women's Health
DX: O24.414 Gestational diabetes mellitus in pregnancy, insulin controlled (principal); Z3A.39 39 weeks gestation of pregnancy
CPT/HCPCS: 76805; 76819

== ENCOUNTER 2022-02-03 19:00 | Inpatient (IN) | payer MEDICAID ==
[~2022-02-03] VITALS: Ht 162.6 cm; Wt 80.3 kg
[2022-02-03 19:20] VITALS: BP 133/87
[2022-02-03 19:30] VITALS: BP 133/87
[2022-02-03] MEDS ORDERED: NS IV 1000 ML 1,000 ML ONE (19:56)
[2022-02-03 19:58] LABS: BILIRUBIN,URINE NEGATIVE (NEGATIVE); CLARITY,URINE CLEAR; COLOR,URINE YELLOW; GLUCOSE, URINE (UA) NEGATIVE (NEGATIVE); KETONES,URINE 1+ (NEGATIVE); LEUKOCYTE ESTERASE ,URINE NEGATIVE (NEGATIVE); NITRITE,URINE NEGATIVE (NEGATIVE); PROTEIN,URINE NEGATIVE (NEGATIVE)
[2022-02-03 19:59] LABS: BASOPHILS % (AUTO) 0 % (0-10); EOSINOPHILS # (AUTO) 0.1 10^3/uL (0.0-0.3); EOSINOPHILS % (AUTO) 1 % (0-10); HEMATOCRIT 35 % (35-52); HEMOGLOBIN 11.6 g/dL (11.5-16.0); LYMPHOCYTES # (AUTO) 1.9 10^3/uL (1.0-4.0); LYMPHOCYTES % (AUTO) 21 % (12-44); MEAN CORPUSCULAR HEMOGLOBIN 29 pg (25-34); MEAN CORPUSCULAR HGB CONC 34 g/dL (32-36); MEAN CORPUSCULAR VOLUME 88 fL (80-99); MEAN PLATELET VOLUME 11.7 fL (9.0-12.2); MONOCYTES # (AUTO) 0.5 10^3/uL (0.0-1.0); MONOCYTES % (AUTO) 6 % (0-12); NEUTROPHILS # (AUTO) 6.3 10^3/uL (1.8-7.8); NEUTROPHILS % (AUTO) 71 % (42-75); PLATELET COUNT 154 10^3/uL (130-400); WHITE BLOOD COUNT 8.9 10^3/uL (4.3-11.0)
[2022-02-03] MEDS ORDERED: MINERAL OIL 30 ML UDC TOP PRN (20:00)
[2022-02-03] MEDS ORDERED: TERBUTALINE INJ 1 MG/ML (BRETHINE) AMP SC PRN (20:00)
[2022-02-03 20:05] VITALS: BP 116/74
[2022-02-03 20:07] LABS: BACTERIA,URINE TRACE /HPF; SQUAMOUS EPITHELIAL CELL,UR 0-2 /HPF; WBC,URINE 0-2 /HPF
[2022-02-03 20:35] VITALS: BP 111/73
[2022-02-03] MEDS: NS IV 1000 ML 1,000 ML IV SCH (20:35)
[2022-02-03] MEDS ORDERED: glipiZIDE 5 MG (GLUCOTROL) TAB ONE (20:47)
[2022-02-03] MEDS ORDERED: glyBURIDE 2.5 MG (MICRONASE) TAB ONE (20:54)
[2022-02-03] MEDS ORDERED: glyBURIDE 2.5 MG (MICRONASE) TAB PO ONE (21:00)
[2022-02-03 21:05] VITALS: BP 95/54
[2022-02-03] MEDS ORDERED: CATHETER FLUSH 10 ML SYR IV SCH (22:00)
[2022-02-03 23:05] VITALS: BP 123/77
[2022-02-04] VITALS (38 sets, daily range): BP systolic 91–149; BP diastolic 53–111
[2022-02-04] MEDS: NS IV 1000 ML 1,000 ML IV SCH ×2 (00:27→08:34)
--- NOTE | 2022-02-04 07:36 | History & Physical-OB ---
OB - Chief Complaint & HPI Date/Time Date of Admission: Date of Admission: Feb 03, 2022 at 19:00 Date seen by a Provider: Feb 04, 2022 Time Seen by a Provider: 07:20 Chief Complaint/History OB-Reason for Admission/Chief: Induction of Labor Hx : 2 Hx Para: 1 Expected Date of Delivery: Feb 21, 2022 Gestational Age in Weeks: 37 Gestational Age in Days: 4 Indication for induction: medical complication Admission Nurse Assessment Rev: Yes History of Labs GBS neg Allergies and Home Medications Allergies Coded Allergies: No Known Drug Allergies (Unverified , 01/17/20) Patient Home Medication List Home Medication List Reviewed: Yes Aspirin (Aspirin) 81 Mg Tab.chew, 81 MG PO DAILY, (Reported) Entered as Reported by: MIKE COLON on 10/21/212330 Cetirizine HCl (Zyrtec) 10 Mg Capsule, 10 MG PO DAILY, (Reported) Entered as Reported by: ROQUE FINCH on 10/23/21 193 Glyburide (Glyburide) 5 Mg Tablet, 5 MG PO HS, (Reported) Entered as Reported by: CHIKA ACUÑA on 01/22/22 120 Glyburide (Glyburide) 1.25 Mg Tablet, 1.25 MG PO DAILY, (Reported) Entered as Reported by: CHIKA ACUÑA on 01/22/22 120 Vit/Iron Fumarate/FA ( Tablet) 27 Mg Iron-800 Mcg Tablet, 1 EACH PO DAILY, (Reported) Entered as Reported by: MIKE COLON on 10/21/212330 Sertraline HCl (Sertraline HCl) 50 Mg Tablet, 50 MG PO DAILY, (Reported) Entered as Reported by: MIKE COLON on 10/21/212330 OB - History Hx of Present Care: Yes Ultrasounds: Normal mid trimester US Abnormal Ultrasound Findings: macrosomia >4000gms at 37 weeks Obstetrical Complications: Gestational Diabetes (poor control) Medical Complications: None Delivery History Adverse Rxn to Tranfusion: No Patient Past Medical History n/a Social History/Family History 2nd Hand Smoke Exposure: No Immunizations Influenza Vaccine Up-to-Date: Yes; Up-to-Date COVID19 [employer] Consultant: [facility] OB - Admission Exam Physical Exam Vitals: Vital Signs 02/03/22 02/04/22 19:30 07:05 Temp 36.6 Pulse 82 Resp 16 B/P (MAP) 110/74 (86) Pulse Ox 99 O2 Delivery Room Air HEENT: NCAT Heart: Rhythm Normal Lungs: Clear Abdomen: Gravid Extremities: Normal Cervical Dilatation: 1cm Effacement: 75% Station: -1 Membranes: Intact Heart Rate: 130's Accelerations: Accelerations Present Decelerations: No Decelerations Short Term Variability: Present Longterm Variability: Average (6-25) Contractions on Admission: 6-10 Minutes Apart Intensity: Mild Labs Laboratory Tests Test 02/03/22 19:25 02/04/22 06:48 Range/Units White Blood Count 8.9 4.3-11.0 10^3/uL Red Blood Count 3.94 3.80-5.11 10^6/uL Hemoglobin 11.6 11.5-16.0 g/dL Hematocrit 35 35-52 % Mean Corpuscular Volume 88 80-99 fL Mean Corpuscular Hemoglobin 29 25-34 pg Mean Corpuscular Hemoglobin Concent 34 32-36 g/dL Red Cell Distribution Width 13.4 10.0-14.5 % Platelet Count 154 130-400 10^3/uL Mean Platelet Volume 11.7 9.0-12.2 fL Immature Granulocyte % (Auto) 1 % Neutrophils (%) (Auto) 71 42-75 % Lymphocytes (%) (Auto) 21 12-44 % Monocytes (%) (Auto) 6 0-12 % Eosinophils (%) (Auto) 1 0-10 % Basophils (%) (Auto) 0 0-10 % Neutrophils # (Auto) 6.3 1.8-7.8 10^3/uL Lymphocytes # (Auto) 1.9 1.0-4.0 10^3/uL Monocytes # (Auto) 0.5 0.0-1.0 10^3/uL Eosinophils # (Auto) 0.1 0.0-0.3 10^3/uL Basophils # (Auto) 0.0 0.0-0.1 10^3/uL Immature Granulocyte # (Auto) 0.0 0.0-0.1 10^3/uL Urine Color YELLOW Urine Clarity CLEAR Urine pH 7.0 5-9 Urine Specific [place] 1.025 H 1.016-1.022 Urine Protein NEGATIVE NEGATIVE Urine Glucose (UA) NEGATIVE NEGATIVE Urine Ketones 1+ H NEGATIVE Urine Nitrite NEGATIVE NEGATIVE Urine Bilirubin NEGATIVE NEGATIVE Urine Urobilinogen 4.0 < = 1.0 MG/DL Urine Leukocyte Esterase NEGATIVE NEGATIVE Urine RBC (Auto) NEGATIVE NEGATIVE Urine RBC NONE /HPF Urine WBC 0-2 /HPF Urine Squamous Epithelial Cells 0-2 /HPF Urine Crystals NONE /LPF Urine Bacteria TRACE /HPF Urine Casts NONE /LPF Urine Mucus SMALL H /LPF Urine Culture Indicated NO Glucose Level 129 H 70-105 MG/DL Glucometer 72 70-110 MG/DL OB - Assessment/Plan/Diagnosis Assessment Assessment: induction of labor Admission Dx 21 y o @ 37.5 GDMA2- poor control macrosomia GBS neg Admission Status: Inpatient Order (span 2 midnights) Reason for Inpatient Admission: 37 week IOL Plan Plan: Induction Induction Method: per Misoprostol Protocol VAL HARRINGTON DO Feb 04, 2022 07:36
[2022-02-04] MEDS ORDERED: fentaNYL 2 mcg/ml BUPIVA 0.125 100 ML ONE (09:23)
[2022-02-04] MEDS ORDERED: diphenhydrAMINE 50 MG/ML INJ (BENADRYL) IV PRN (10:15)
[2022-02-04] MEDS ORDERED: NALOXONE 0.4 MG/ML 1 ML (NARCAN) VIAL IV PRN ×3 (10:15→13:15)
[2022-02-04] MEDS ORDERED: LACTATED RINGERS 1,000 ML IV SCH (10:15)
[2022-02-04] MEDS ORDERED: fentaNYL 2 mcg/ml BUPIVA 0.125 100 ML EPI SCH (10:15)
[2022-02-04] MEDS ORDERED: METOCLOPRAMIDE INJ 10 MG/2 ML (REGLAN) IV PRN (10:15)
[2022-02-04] MEDS ORDERED: ONDANSETRON 4 MG/2 ML (SDV) Z0FRAN IV PRN (10:15)
[2022-02-04] MEDS ORDERED: OXYTOCIN PRE-MIX DRIP 500 ML IV SCH (10:45)
[2022-02-04] MEDS ORDERED: LIDOCAINE/EPI 2% 1:200,00 (XYLOCAINE) 10 ML VIAL ONE (12:47)
[2022-02-04] MEDS ORDERED: TETANUS,DIPTH,PERTUSS P/F (BOOSTRIX) 0.5 ML VIAL IM ONE (13:15)
[2022-02-04] MEDS ORDERED: DIBUCAINE 1% OINTMENT 30 GM TUBE TOP PRN (13:15)
[2022-02-04] MEDS ORDERED: MEASLES,MUMPS,RUBELLA 1 EA INJ SQ ONE (13:15)
[2022-02-04] MEDS ORDERED: BENZOCAINE/MENTHOL (DERMOPLAST) 56 ML CAN TP PRN (13:15)
[2022-02-04] MEDS ORDERED: HYDROcodone/APAP 5 MG/325 MG (LORTAB) TAB PO PRN (13:15)
--- NOTE | 2022-02-04 13:20 | OB Labor & Delivery Record ---
L&D History Date of Service Date of Service: Feb 04, 2022 History Expected Date of Delivery: Feb 21, 2022 Gestational Age in Weeks: 37 Hx : 2 Hx Para: 1 Complications Events: Routine care Operative Indications (Cesarea: N/A-Vaginal Delivery Intrapartal Events: None L&D Stage1 Stage One Onset of Labor - Date: Feb 04, 2022 Monitors and Tracing Monitor Mode: External Heart Rate: 135 Station: -1 Skilled Nursing Variability: Average (6-10) Short Term Variability: Present Presentation: Vertex Vital Signs VS - Last 72 Hours, by Label 02/03/22 02/03/22 02/03/22 02/03/22 19:20 19:30 20:05 20:35 Temp 36.6 36.6 Pulse 109 109 93 95 Resp 18 18 18 18 B/P (MAP) 133/87 (102) 116/74 (88) 111/73 (86) Pulse Ox 99 99 O2 Delivery Room Air Room Air Room Air Room Air 02/03/22 02/03/22 02/03/22 02/03/22 21:05 21:35 22:05 23:05 Pulse 90 88 Resp 18 18 B/P (MAP) 95/54 (68) 123/77 (92) O2 Delivery Room Air Room Air Room Air Room Air 02/04/22 02/04/22 02/04/22 02/04/22 00:05 01:05 02:05 03:05 Pulse 100 79 Resp 18 18 B/P (MAP) 112/74 (87) 91/54 (66) O2 Delivery Room Air Room Air Room Air Room Air 02/04/22 02/04/22 02/04/22 02/04/22 04:05 05:05 06:05 07:05 Pulse 86 82 Resp 16 16 B/P (MAP) 95/53 (67) 110/74 (86) O2 Delivery Room Air Room Air Room Air Room Air 02/04/22 02/04/22 02/04/22 02/04/22 07:30 07:45 08:27 08:33 Pulse 93 98 90 100 Resp 18 18 18 18 B/P (MAP) 118/78 (91) 117/70 (86) 118/73 (88) 125/74 (91) O2 Delivery Room Air Room Air Room Air Room Air 02/04/22 02/04/22 02/04/22 02/04/22 08:45 09:00 09:30 09:45 Temp 36.4 Pulse 88 90 102 92 Resp 20 20 22 20 B/P (MAP) 110/76 (87) 118/78 (91) 149/111 (124) 104/86 (92) O2 Delivery Room Air Room Air Room Air Room Air 02/04/22 02/04/22 02/04/22 02/04/22 09:56 10:00 10:05 10:18 Pulse 100 116 116 83 Resp 20 20 20 20 B/P (MAP) 117/61 (79) 120/87 (98) 120/87 (98) 119/71 (87) Pulse Ox 97 94 94 98 O2 Delivery Room Air Room Air Room Air Room Air 02/04/22 02/04/22 02/04/22 02/04/22 10:30 10:45 11:00 11:15 Temp 36.5 Pulse 80 76 84 83 Resp 20 20 20 20 B/P (MAP) 110/70 (83) 104/70 (81) 103/70 (81) 107/73 (84) Pulse Ox 96 95 96 96 O2 Delivery Room Air Room Air Room Air Room Air 02/04/22 02/04/22 11:30 11:45 Pulse 99 85 Resp 20 20 B/P (MAP) 126/79 (95) 118/75 (89) Pulse Ox 98 99 O2 Delivery Room Air Room Air Rupture of Membranes Spontaneous Ruture of Membrane: No Amniotic Membrane Rupture Time: 0715 Amniotic Membrane Fluid Desc.: Clear Vaginal Bleeding Description: Normal Show Induction/Anesthesia Epidural Cath Placement - Time: 954 Progress/Notes Patient admitted last night for IOL due to uncontrolled GDMA2 and suspected macrosomia. Misoprostol used overnight PO, and AROM performed this morning. She received an epidural after AROM and rapidly progressed with no further augmentation to complete and + 2 station. 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 Condition of Delivery 1 minute Comment: 9 5 minute Comment: 9 Notes Live female weight 8lbs 10 oz Condition of Condition of : Living Exam: No Observed Abnormalities Resuscitation Resuscitation: N/A - Spontaneous Resp L&D Stage3 Stage Three Stage III Date: Feb 04, 2022 Pictocin Pitocin Administration Comment: 30 mu wide open after delivery of placenta Placenta Delivery Placenta Delivery: Spontaneous Delivery Summary Summary Estimated blood loss (mL): 350 Attending at delivery: Val Harrington DO Condition of Delivery Examined: Cervix Examined, Uterus Explored Post Hemorrhage: No Condition of Mother stable Condition of Infant (s) stable VAL HARRINGTON DO Feb 04, 2022 13:20
[2022-02-04] MEDS: OXYTOCIN PRE-MIX DRIP 500 ML IV SCH ×2 (13:23→13:56)
[2022-02-04] MEDS ORDERED: CATHETER FLUSH 10 ML SYR IV SCH (14:00)
[2022-02-04] MEDS: WITCH HAZEL(TUCKS) 40 EA JAR TOP PRN (14:43)
[2022-02-04] MEDS: IBUPROFEN 600 MG (MOTRIN) TAB PO SCH ×2 (14:44→20:46)
[2022-02-04] MEDS: DOCUSATE SODIUM 100 MG (COLACE) CAP PO SCH (20:46)
[2022-02-05 00:37] VITALS: BP 118/70
[2022-02-05] MEDS: ACETAMINOPHEN 500 MG TAB (TYLENOL) PO PRN ×3 (00:37→15:38)
[2022-02-05 04:35] VITALS: BP 115/80
[2022-02-05] MEDS: IBUPROFEN 600 MG (MOTRIN) TAB PO SCH ×3 (04:35→13:30)
[2022-02-05 05:42] LABS: BASOPHILS # (AUTO) 0.1 10^3/uL (0.0-0.1); BASOPHILS % (AUTO) 0 % (0-10); EOSINOPHILS # (AUTO) 0.1 10^3/uL (0.0-0.3); EOSINOPHILS % (AUTO) 1 % (0-10); HEMATOCRIT 33 % (35-52); HEMOGLOBIN 10.9 g/dL (11.5-16.0); LYMPHOCYTES # (AUTO) 1.9 10^3/uL (1.0-4.0); LYMPHOCYTES % (AUTO) 17 % (12-44); MEAN CORPUSCULAR HEMOGLOBIN 29 pg (25-34); MEAN CORPUSCULAR HGB CONC 33 g/dL (32-36); MEAN CORPUSCULAR VOLUME 90 fL (80-99); MEAN PLATELET VOLUME 11.6 fL (9.0-12.2); MONOCYTES # (AUTO) 0.6 10^3/uL (0.0-1.0); MONOCYTES % (AUTO) 5 % (0-12); NEUTROPHILS # (AUTO) 8.6 10^3/uL (1.8-7.8); NEUTROPHILS % (AUTO) 76 % (42-75); PLATELET COUNT 148 10^3/uL (130-400); WHITE BLOOD COUNT 11.3 10^3/uL (4.3-11.0)
[2022-02-05] MEDS ORDERED: PRENATAL VITAMIN 1 EA TAB PO SCH (07:00)
--- NOTE | 2022-02-05 08:13 | Postpartum Progress Note ---
Note Note Day # 1 Subjective: Patient is without complaints. Ambulating, voiding. Tolerating a regular diet without nausea or vomiting. Normal lochia. Pain is well controlled with oral pain medications. Objective: Physical Exam: General - Alert and oriented, no apparent distress Abdomen - Soft, appropriately tender to palpation, non-distended, fundus firm at umbilicus Extremities - no edema, negative Prem's bilaterally Assessment: PPD 1 NVD Acute blood loss anemia Persistent insulin resistance Plan: Routine care. Starting on Metformin 500 BID Encourage breast feeding. Encourage ambulation. Ferrous sulfate supplementation. Plan for discharge later today or tomorrow Vitals - Labs Vital Signs - I&O Vital Signs Date Time Temp Pulse Resp B/P (MAP) Pulse Ox O2 Delivery O2 Flow Rate FiO2 02/05/22 04:35 36.6 72 18 115/80 (92) 99 Room Air 02/05/22 00:37 36.5 92 18 118/70 (86) 99 Room Air 02/04/22 20:46 36.6 90 18 114/73 (87) 99 Room Air 02/04/22 18:15 36.7 88 18 110/64 (79) 99 Room Air 02/04/22 15:15 92 18 111/70 (84) Room Air 02/04/22 15:00 36.7 94 18 111/68 (82) Room Air 02/04/22 14:45 83 18 105/69 (81) Room Air 02/04/22 14:30 77 18 103/63 (76) Room Air 02/04/22 14:15 85 18 107/66 (80) Room Air 02/04/22 14:00 100 18 107/61 (76) Room Air 02/04/22 13:45 37.0 91 20 103/64 (77) 99 Room Air 02/04/22 13:30 37.2 113 20 109/80 (90) 99 Room Air 02/04/22 13:16 37.0 114 20 115/53 (73) 99 Room Air 02/04/22 13:05 37.1 123 20 141/62 (88) 99 Room Air 02/04/22 12:48 118 20 126/63 (84) 99 Room Air 02/04/22 12:33 93 20 128/82 (97) 99 Room Air 02/04/22 12:15 93 20 121/75 (90) 99 Room Air 02/04/22 12:03 89 20 120/77 (91) 99 Room Air 02/04/22 11:45 85 20 118/75 (89) 99 Room Air 02/04/22 11:30 99 20 126/79 (95) 98 Room Air 02/04/22 11:15 83 20 107/73 (84) 96 Room Air 02/04/22 11:00 84 20 103/70 (81) 96 Room Air 02/04/22 10:45 36.5 76 20 104/70 (81) 95 Room Air 02/04/22 10:30 80 20 110/70 (83) 96 Room Air 02/04/22 10:18 83 20 119/71 (87) 98 Room Air 02/04/22 10:05 116 20 120/87 (98) 94 Room Air 02/04/22 10:00 116 20 120/87 (98) 94 Room Air 02/04/22 09:56 100 20 117/61 (79) 97 Room Air 02/04/22 09:45 92 20 104/86 (92) Room Air 02/04/22 09:30 36.4 102 22 149/111 (124) Room Air 02/04/22 09:00 90 20 118/78 (91) Room Air 02/04/22 08:45 88 20 110/76 (87) Room Air 02/04/22 08:33 100 18 125/74 (91) Room Air 02/04/22 08:27 90 18 118/73 (88) Room Air I & O 02/05/22 07:00 Intake Total 3600 ml Output Total 3 ml Balance 3597 ml Labs Laboratory Tests 02/04/22 17:07: Glucometer 157H 02/04/22 20:48: Glucometer 139H 02/05/22 05:20: White Blood Count 11.3H, Red Blood Count 3.71L, Hemoglobin 10.9L, Hematocrit 33L , Mean Corpuscular Volume 90, Mean Corpuscular Hemoglobin 29, Mean Corpuscular Hemoglobin Concent 33, Red Cell Distribution Width 13.4, Platelet Count 148, Mean Platelet Volume 11.6, Immature Granulocyte % (Auto) 0, Neutrophils (%) (Auto) 76H, Lymphocytes (%) (Auto) 17, Monocytes (%) (Auto) 5, Eosinophils (%) (Auto) 1, Basophils (%) (Auto) 0, Neutrophils # (Auto) 8.6H, Lymphocytes # (Auto) 1.9, Monocytes # (Auto) 0.6, Eosinophils # (Auto) 0.1, Basophils # (Auto) 0.1, Immature Granulocyte # (Auto) 0.0, Glucose Level 125H VAL HARRINGTON DO Feb 05, 2022 08:12
[2022-02-05] MEDS ORDERED: BENZ78AE5 TP (08:15)
[2022-02-05] MEDS ORDERED: METF-397 PO (08:15)
[2022-02-05] MEDS ORDERED: DIBU30OI TOP (08:15)
[2022-02-05] MEDS ORDERED: DOCU100C37 PO (08:15)
[2022-02-05] MEDS ORDERED: IBUP-844 PO (08:15)
[2022-02-05] MEDS ORDERED: ACHD5005 PO (08:15)
[2022-02-05] MEDS ORDERED: FERR325T24 PO (08:15)
[2022-02-05 08:45] VITALS: BP 108/69
[2022-02-05] MEDS: DOCUSATE SODIUM 100 MG (COLACE) CAP PO SCH (08:51)
[2022-02-05] MEDS ORDERED: metFORMIN 500 MG (GLUCOPHAGE) TAB PO SCH (09:00)
[2022-02-05] MEDS ORDERED: FERROUS SULF 325 MG (IRON) TAB PO SCH (09:00)
--- NOTE | 2022-02-05 10:00 | Anesthesia-Regional Post-Op ---
Regional Patient Condition Mental Status: Alert, Oriented x3 Circulation: Same as Pre-Op Headache: Absent Sensation: Full Recovery Motor Block: Absent Post Op Complications Complications None Follow Up Care/Instructions Patient Instructions None needed. Anesthesia/Patient Condition Patient is doing well, no complaints, stable vital signs, no apparent adverse anesthesia problems. No complications reported per nursing. BISI GROVES CRNA Feb 05, 2022 10:00
[2022-02-05] MEDS ORDERED: FLU QUADRIvalent (6 months+) 60 mcg/0.5 ml 2022-23 (Fluzone) IM ONE (10:45)
[2022-02-05 11:49] VITALS: BP 109/71
[2022-02-05] MEDS: WITCH HAZEL(TUCKS) 40 EA JAR TOP PRN (15:59)
[2022-02-05 16:15] VITALS: BP 109/71
== END 2022-02-05 16:15 | disposition home or self-care (01) | DRG 806 ==
LOC: LDRP 19:00
PROVIDERS: ADMIT Obstetrics & Gynecology; ATTEND Obstetrics & Gynecology
PROC: 3E0DXGC Introduction of Other Therapeutic Substance into Mouth and Pharynx, External Approach (ICD-10-PCS; 2022-02-03)
PROC: 10E0XZZ Delivery of Products of Conception, External Approach (ICD-10-PCS; principal; 2022-02-04)
PROC: 0HQ9XZZ Repair Perineum Skin, External Approach (ICD-10-PCS; 2022-02-04)
DX: O24.425 Gestational diabetes mellitus in childbirth, controlled by oral hypoglycemic drugs (principal); D62 Acute posthemorrhagic anemia; Z37.0 Single live birth; E11.65 Type 2 diabetes mellitus with hyperglycemia; O70.1 Second degree perineal laceration during delivery; O90.81 Anemia of the puerperium; E88.81 Metabolic syndrome and other insulin resistance; O90.89 Other complications of the puerperium, not elsewhere classified; Z3A.37 37 weeks gestation of pregnancy; Z79.84 Long term (current) use of oral hypoglycemic drugs; Z79.82 Long term (current) use of aspirin
CPT/HCPCS: 36415; 81000; 82947; 85025; 86780; 86850; 86900; 86901; 90686